=== PATIENT | female | born 2000 | race Caucasian/White ===

== ENCOUNTER 2020-06-23 08:57 | Emergency (ER) | payer SELFPAY ==
[~2020-06-23] VITALS: Ht 165.1 cm; Wt 69.9 kg
[2020-06-23 09:00] VITALS: BP 154/82
--- NOTE | 2020-06-23 09:00 | NUR ---
Pt taken to bed 2 for evaluation.
--- NOTE | 2020-06-23 09:10 | NUR ---
Pt ambulated to bathroom for UA collection.
--- NOTE | 2020-06-23 09:15 | NUR ---
19 y/o female A&OX4 c/o abdominal pain X1 day 03/14 sharp constant radiates up to chest. Pt states she took pepto bismol vomited X1 and had no relief. Pt denies fever, N/V currently, states she feels chills. Abdomen is soft, round, non-tender present bowel sounds X4. Last BM this morning. Denies PMH, RX NKA
[2020-06-23] MEDS ORDERED: DICYCLOMINE HCL LIQUID 20 MG, ALUMINUM HYD/MAG/SIMETHICONE 30 ML, LIDOCAINE VISCOUS 2% ... PO ONE ×3 (09:50)
[2020-06-23] MEDS ORDERED: FAMOTIDINE 20 MG TAB PO ONE (09:50)
[2020-06-23] MEDS ORDERED: ONDANSETRON 4 MG ODT PO ONE (09:50)
[2020-06-23] MEDS ORDERED: KETOROLAC 30 MG/ML VIAL IM ONE (09:50)
[2020-06-23] MEDS ORDERED: DICYCLOMINE HCL LIQUID 10 MG/5 ML UDC ONE (09:54)
[2020-06-23] MEDS ORDERED: LIDOCAINE VISCOUS 2% 20 ML UDC ONE (09:54)
[2020-06-23] MEDS ORDERED: ALUMINUM HYD/MAG/SIMETHICONE 30 ML UDC ONE (09:54)
[2020-06-23] MEDS ORDERED: ONDANSETRON 4 MG/2 ML VIAL IVP ONE (10:05)
[2020-06-23] MEDS ORDERED: NACL 0.9% 1,000 ML IV ONE (10:05)
--- NOTE | 2020-06-23 10:17 | NUR ---
20G IV placed to left AC with good blood return.
--- NOTE | 2020-06-23 10:51 | NUR ---
Pt vomited immediately after taking GI cocktail. Dr Larose made aware
[2020-06-23] MEDS ORDERED: PROCHLORPERAZINE 10 MG/2 ML VIAL IVP ONE (10:55)
[2020-06-23 11:08] LABS: HEMOGLOBIN 9.5 g/dL (12.0-16.0); MEAN CORPUSCULAR HEMOGLOBIN 22 pg (27-31); MEAN CORPUSCULAR HGB CONC 31 g/dL (33-37); MEAN CORPUSCULAR VOLUME 71.5 fL (80-94); PLATELET COUNT (AUTO) 336 K/uL (140-450); RED BLOOD CELL COUNT(AUTO) 4.33 MIL/uL (4.20-5.40); RED CELL DISTRIBUTION WIDTH 18.6 % (11.6-13.7); WHITE BLOOD COUNT (AUTO) 7.8 K/uL (4.5-11.0)
--- NOTE | 2020-06-23 11:08 | NUR ---
Pt ambulated to restroom with steady gait.
[2020-06-23 11:09] LABS: BASOPHILS % (AUTO) 0.3 % (0.0-2.0); EOSINOPHILS % (AUTO) 0.1 % (0.0-4.0); LYMPHOCYTES # (AUTO) 0.9 K/uL (2.5-16.5); LYMPHOCYTES % (AUTO) 11.2 % (20.5-51.1); MONOCYTES # (AUTO) 0.2 K/uL (0.8-1.0); MONOCYTES % (AUTO) 2.9 % (1.7-9.3); NEUTROPHILS # (AUTO) 6.7 K/uL (1.8-7.7); NEUTROPHILS % (AUTO) 85.5 % (42.2-75.2)
[2020-06-23 11:22] LABS: ANION GAP 16.2 (8-16); CARBON DIOXIDE 21.1 mmol/L (21-32); POTASSIUM 3.3 mmol/L (3.5-5.1)
[2020-06-23 11:23] LABS: CREATININE 0.6 mg/dL (0.6-1.3); TOTAL BILIRUBIN 0.4 mg/dL (0.0-1.0)
--- NOTE | 2020-06-23 11:25 | NUR ---
Spoke with pt mother with consent to update on pt status.
--- NOTE | 2020-06-23 11:30 | NUR ---
Dr. Larose at pt bedside.
[2020-06-23 11:44] VITALS: BP 154/82
--- NOTE | 2020-06-23 11:44 | NUR ---
Patient discharged with v/s stable. Written and verbal after care instructions given and explained. Patient alert, oriented and verbalized understanding of instructions. Ambulatory with steady gait. All questions addressed prior to discharge. ID band removed. Patient advised to follow up with PMD. Rx of pepcid 20mg PO Q12h PRN and zofran 4mg ODT q8h PRN given. Patient educated on indication of medication including possible reaction and side effects. Opportunity to ask questions provided and answered.
== END 2020-06-23 11:44 | disposition home or self-care (01) ==
LOC: MED 08:57
DX: R10.13 Epigastric pain (principal)
CPT/HCPCS: 36415; 80053; 81002; 81025; 83690; 85025; 96361; 96372; 96374; 96375; 99284; J0780; J1885; J2405; J7030; Q0162